=== PATIENT | female | born 1970 | race African-American/Black ===

== ENCOUNTER 2023-10-30 22:07 | Emergency (ER) | payer OTHER ==
[2023-10-30 22:19] VITALS: BP 116/77; PULSE 96; RESP 18; TEMP 98.3; BMI 48.2
[2023-10-30] MEDS ORDERED: ALBUTEROL SO4 2.5/IPRATROPIUM 0.5 INH SOL 3 ML VIAL.NEB. NEB ONE (22:49)
[2023-10-30] MEDS ORDERED: methylPREDNISolone NA SUCC 125 MG/2 ML VIAL ONE (22:49)
[2023-10-30] MEDS: ALBUTEROL SO4 2.5/IPRATROPIUM 0.5 INH SOL 3 ML VIAL.NEB. NEB SCH (23:08)
[2023-10-30] MEDS: methylPREDNISolone NA SUCC 125 MG/2 ML VIAL IVPUSH ONE (23:08)
[2023-10-30 23:14] LABS: HEMATOCRIT 35.6 % (32.4-45.2); HEMOGLOBIN 10.9 G/dL (10.7-15.3); MCH 21.9 pg (25.7-33.7); MCHC 30.5 g/dl (32.0-36.0); MEAN CELL VOLUME 71.6 fl (80-96); MEAN PLT VOLUME 9.3 fl (7.5-11.1); PLATELET COUNT 233.5 10^3/uL (134-434); RBC 4.97 10^6/uL (3.60-5.2); WHITE BLOOD COUNT 5.1 10^3/uL (4.0-10.8)
[2023-10-30 23:33] LABS: ALBUMIN 4.3 g/dl (3.4-5.0); BILIRUBIN,TOTAL 0.5 mg/dl (0.2-1); CALCIUM 9.6 mg/dl (8.5-10.1); CREATININE 0.8 mg/dl (0.6-1.3); POTASSIUM 3.3 mmol/L (3.5-5.1); URIC ACID 5.1 mg/dl (2.6-7.2)
[2023-10-31] MEDS: SULFAMETHOXAZOLE 80 MG/TRIMETHOPRIM 16 MG/ML VIAL IVPB ONE (00:15)
[2023-10-31] MEDS ORDERED: SULFAMETHOXAZOLE/TRIMETHOPRIM 800MG/160MG D.S. TABLET ONE (00:16)
[2023-10-31] MEDS: SULFAMETHOXAZOLE/TRIMETHOPRIM 800MG/160MG D.S. TABLET PO ONE (00:17)
== END 2023-10-31 00:39 | disposition home or self-care (01) ==
LOC: FER 22:07
PROC: 3E033GC Introduction of Other Therapeutic Substance into Peripheral Vein, Percutaneous Approach (ICD-10-PCS; principal; 2023-10-30)
DX: J02.9 Acute pharyngitis, unspecified (principal); R09.81 Nasal congestion; J45.21 Mild intermittent asthma with (acute) exacerbation; J40 Bronchitis, not specified as acute or chronic; E66.01 Morbid (severe) obesity due to excess calories; Z20.822 Contact with and (suspected) exposure to COVID-19
CPT/HCPCS: 0241U-QW; 36415; 80053; 84550; 85027; 93971; 99284-25